=== PATIENT | male | born 1960 | race Caucasian/White ===

== ENCOUNTER 2018-01-18 15:37 | Emergency (ER) | payer OTHER | END 2018-01-18 19:49 | disposition home or self-care (01) | LOC: FTE 15:37 | DX: M79.89 Other specified soft tissue disorders (principal); I10 Essential (primary) hypertension; J45.909 Unspecified asthma, uncomplicated; Z87.891 Personal history of nicotine dependence | CPT/HCPCS: 93971; 99284-25 ==